=== PATIENT | female | born 1985 | race African-American/Black ===

== ENCOUNTER 2025-04-08 15:22 | Emergency (ER) | payer MEDICAID ==
[~2025-04-08] VITALS: Ht 167.6 cm; Wt 110.0 kg
[~2025-04-08 15:22] MED LIST: ACYC-58 PO
[2025-04-08 15:25] VITALS: TEMP 36.7; O2SAT 97
[2025-04-08] MEDS ORDERED: LIDO-53 TP (17:53)
[2025-04-08] MEDS ORDERED: IBUP-2028 MT (17:53)
[2025-04-08 18:04] VITALS: BP 132/96; PULSE 100; RESP 20
[2025-04-08] MEDS: KETOROLAC 30MG/ML VIAL IM ONE (18:04)
[2025-04-08] MEDS: LIDOCAINE 5% PATCH TOP SCH (18:04)
== END 2025-04-08 18:19 | disposition home or self-care (01) ==
LOC: ER 15:22
DX: M25.561 Pain in right knee (principal); I10 Essential (primary) hypertension; J45.909 Unspecified asthma, uncomplicated; Z88.0 Allergy status to penicillin
CPT/HCPCS: 99284; 81025; 72040; 73030; 73560; 73600; 96372; J1885